=== PATIENT | female | born 1980 | race African-American/Black ===

== ENCOUNTER 2018-08-28 09:11 | Emergency (ER) | payer MEDICAID, BC ==
[~2018-08-28] VITALS: Ht 175.3 cm; Wt 100.0 kg
[2018-08-28 13:56] LABS: BASOPHILS % 0.5 % (0.0-2.0); HEMATOCRIT. 36.5 % (36.0-48.0); HEMOGLOBIN. 11.9 g/dL (12.0-16.0); LYMPHOCYTES % 30.9 % (20.0-50.0); MEAN CORPUSCULAR HEMOGLOBIN 26.7 pg (28.0-32.0); MEAN CORPUSCULAR VOLUME 81.8 fL (81.0-99.0); MEAN PLATELET VOLUME 8.4 fl (7.4-10.4); MONOCYTES % 7.2 % (2.0-8.0); NEUTROPHILS % 60.4 % (40.0-76.0); PLATELET 311 x1000/uL (130-400); RED BLOOD CELL COUNT 4.46 mill/uL (4.2-5.4); RED CELL DISTRIBUTION WIDTH 17.1 % (11.6-14.6)
[2018-08-28 13:57] LABS: CHLORIDE 103 mEq/L (98-107)
[2018-08-28 14:20] LABS: B-HCG QUANTITATIVE 39753 mIU/mL (<3)
[2018-08-28 15:58] LABS: CLARITY URINE CLEAR (CLEAR); COLOR URINE YELLOW (YELLOW); KETONES URINE NEGATIVE (NEGATIVE); LEUKOCYTE ESTERASE URINE NEGATIVE (NEGATIVE); NITRITE URINE NEGATIVE (NEGATIVE); OCCULT BLOOD URINE TRACE (NEGATIVE); PH URINE 6.5 (4.5-8.0); PROTEIN URINE NEGATIVE (NEGATIVE); SPECIFIC GRAVITY URINE 1.019 (1.005-1.030); UROBILINOGEN URINE 0.2 E.U./dL (0.2-1.0)
[2018-08-28 16:33] VITALS: BP 119/59
== END 2018-08-28 17:28 | disposition home or self-care (01) ==
LOC: ER 09:11
DX: O26.891 Other specified pregnancy related conditions, first trimester (principal); R10.30 Lower abdominal pain, unspecified; R43.9 Unspecified disturbances of smell and taste; G43.909 Migraine, unspecified, not intractable, without status migrainosus; Z3A.01 Less than 8 weeks gestation of pregnancy
CPT/HCPCS: 36415; 76801; 76817; 80053; 81003; 81025; 84702; 85025; 99285; Z7610

== ENCOUNTER 2019-02-04 22:15 | Observation (INO) | payer BC, MEDICAID ==
[~2019-02-04] VITALS: Ht 175.3 cm; Wt 119.5 kg
[2019-02-05 02:02] VITALS: BP 122/48
[2019-02-05] MEDS ORDERED: FERR325T23 GT (02:58)
[2019-02-05] MEDS ORDERED: ALBU6.7H9 INH (02:58)
[2019-02-05] MEDS ORDERED: AZIT500T3 MT (02:58)
[2019-02-05] MEDS ORDERED: PNV1TABL50 PO (02:58)
[2019-02-05] MEDS ORDERED: GUAI5SYR3 MT (02:58)
== END 2019-02-05 03:30 | disposition home or self-care (01) ==
LOC: ER 22:15 → 8 EST LDRP 02-05 02:20
PROVIDERS: ADMIT Specialist; ATTEND Specialist
DX: O99.513 Diseases of the respiratory system complicating pregnancy, third trimester (principal); J20.8 Acute bronchitis due to other specified organisms; O26.893 Other specified pregnancy related conditions, third trimester; R05 Cough; R10.9 Unspecified abdominal pain; Z3A.28 28 weeks gestation of pregnancy
CPT/HCPCS: 99281; G0378

== ENCOUNTER 2024-07-09 12:49 | Emergency (ER) | payer MEDICAID, OTHER ==
[~2024-07-09] VITALS: Ht 175.3 cm; Wt 104.0 kg
[~2024-07-09 12:49] MED LIST: ALBU6.7H3 INH; AZIT500T MT; FERR325T23 GT; GUAI5SYR3 MT; PNV1TABL50 PO
[2024-07-09 13:03] VITALS: O2SAT 100
[2024-07-09 14:34] LABS: BASOPHILS % 0.5 % (0.0-2.0); EOSINOPHILS % 1.1 % (0.0-5.0); HEMATOCRIT. 37.2 % (36.0-48.0); HEMOGLOBIN. 11.9 g/dL (12.0-16.0); MEAN CORPUSCULAR HEMOGLOBIN 27.5 pg (28.0-32.0); MEAN CORPUSCULAR HGB CONC 31.9 g/dL (31.0-37.0); MEAN PLATELET VOLUME 8.5 fl (7.4-10.4); MONOCYTES % 5.2 % (2.0-8.0); NEUTROPHILS % 71.2 % (40.0-76.0); PLATELET 280 x1000/uL (130-400); RED BLOOD CELL COUNT 4.32 mill/uL (4.2-5.4); RED CELL DISTRIBUTION WIDTH 16.5 % (11.6-14.6); WHITE BLOOD COUNT 6.6 x1000/uL (4.5-11.0)
[2024-07-09] MEDS: MORPHINE SULFATE 4 MG/ML INJ (FOR IV/IM USE) IV ONE ×2 (14:38→19:00)
[2024-07-09 14:41] LABS: CHLORIDE 109 mEq/L (98-107); POTASSIUM 3.3 mEq/L (3.5-5.1); SODIUM 142 mEq/L (136-145)
[2024-07-09 14:42] LABS: CALCIUM 8.9 mg/dL (8.7-10.4); CARBON DIOXIDE 29 mEq/L (21-32)
[2024-07-09 14:47] LABS: CREATININE 0.7 mg/dL (0.6-1.0); GLUCOSE 87 mg/dL (70-105); UREA NITROGEN BLOOD 7 mg/dL (9-23)
[2024-07-09 14:48] LABS: HCG SCREEN NEGATIVE
[2024-07-09 15:02] LABS: PROTHROMBIN TIME 10.7 sec (9.6-11.0)
[2024-07-09] MEDS: MORPHINE SULFATE 4 MG/ML INJ (FOR IV/IM USE) IV NR (15:28)
[2024-07-09] MEDS ORDERED: IBUP-2028 MT (19:21)
[2024-07-09] MEDS ORDERED: HYDR-4001 MT (19:21)
[2024-07-09] MEDS: POTASSIUM CHLORIDE 20MEQ TABLET SR PO ONE (19:37)
[2024-07-09 19:45] VITALS: BP 121/62; PULSE 71; RESP 14; TEMP 98
== END 2024-07-09 20:48 | disposition home or self-care (01) ==
LOC: ER 13:41
DX: S82.142A Displaced bicondylar fracture of left tibia, initial encounter for closed fracture (principal); Z79.899 Other long term (current) drug therapy; W01.0XXA Fall on same level from slipping, tripping and stumbling without subsequent striking against object, initial encounter; Y93.89 Activity, other specified; Y92.89 Other specified places as the place of occurrence of the external cause; Y99.8 Other external cause status; J45.909 Unspecified asthma, uncomplicated
CPT/HCPCS: 80048; 84703; 85025; 85610; 86850; 86900; 86901; 36415; 73552; 73560; 73590; 96374; 99284; J2270; Z7610 ×3; L1830